=== PATIENT | male | born 1985 | race Caucasian/White ===

== ENCOUNTER 2017-01-04 12:23 | Emergency (ER) | payer MEDICAID | END 2017-01-04 12:45 | disposition left against medical advice (07) | LOC: D.ER 12:23 | DX: Z02.9 Encounter for administrative examinations, unspecified (principal) ==

== ENCOUNTER 2017-01-29 12:06 | Emergency (ER) | payer MEDICAID | END 2017-01-29 16:36 | disposition home or self-care (01) | LOC: D.ER 12:06 | DX: S49.91XA Unspecified injury of right shoulder and upper arm, initial encounter (principal); W11.XXXA Fall on and from ladder, initial encounter; Y93.89 Activity, other specified; Y92.029 Unspecified place in mobile home as the place of occurrence of the external cause; F17.200 Nicotine dependence, unspecified, uncomplicated ==

== ENCOUNTER 2017-02-18 13:09 | Emergency (ER) | payer MEDICAID ==
[2017-02-18 14:00] LABS: BASOPHILS 0.5 % (0-2); EOSINOPHILS 3.9 % (0-7); HEMATOCRIT 32.7 % (42.0-54.0); HEMOGLOBIN 10.1 g/dL (13.5-17.5); IMMATURE GRANULOCYTES 0.2 % (0-5); LYMPHOCYTES 26.9 % (15-50); MCH 23.4 pg (26.0-34.0); MCHC 30.9 g/dL (31.0-37.0); MCV 75.9 fL (80.0-100.0); MEAN PLATELET VOLUME 9.1 fL (7.4-10.4); MONOCYTES 4.6 % (2-11); NEUTROPHILS 63.9 % (40-80); PLATELET COUNT 344 10x3/uL (130-400); RBC 4.31 10x6/uL (4.20-6.10); RDW 15.9 % (11.5-14.5); WBC 8.7 10x3/uL (4.8-10.8)
[2017-02-18 14:01] LABS: APPEARANCE CLEAR (CLEAR); BILIRUBIN NEGATIVE (NEGATIVE); COLOR YELLOW (YELLOW); GLUCOSE NEGATIVE (NEGATIVE); KETONE SMALL mg/dL (NEGATIVE); NITRITE NEGATIVE (NEGATIVE); PROTEIN NEGATIVE (NEGATIVE); UROBILINOGEN NORMAL (NORMAL)
[2017-02-18 14:13] LABS: ALBUMIN 3.4 g/dL (3.4-5.0); ALKALINE PHOSPHATASE 70 U/L (46-116); ALT (SGPT) 48 U/L (10-68); BILIRUBIN - TOTAL 0.22 mg/dL (0.2-1.3); CALC OSMOLALITY 281 mosm/kg (275-300); CALCIUM 8.2 mg/dL (8.5-10.1); CHLORIDE - SERUM 108 mmol/L (98-107); CREATININE - SERUM 0.9 mg/dL (0.6-1.3); GLUCOSE 92 mg/dL (74-106); POTASSIUM - SERUM 3.9 mmol/L (3.5-5.1); PROTEIN - SERUM 6.7 g/dL (6.4-8.2); SODIUM 141 mmol/L (136-145); UREA NITROGEN 16 mg/dL (7-18); eGFR NON AFRICAN AMERICAN > 90 mL/min (90-120)
== END 2017-02-18 16:03 | disposition home or self-care (01) ==
LOC: D.ER 13:09
PROVIDERS: Family Medicine
DX: R10.32 Left lower quadrant pain (principal); R11.2 Nausea with vomiting, unspecified

== ENCOUNTER 2017-04-04 20:26 | Emergency (ER) | payer MEDICAID | END 2017-04-04 21:52 | disposition home or self-care (01) | LOC: D.ER 20:26 | DX: S61.213A Laceration without foreign body of left middle finger without damage to nail, initial encounter (principal); W25.XXXA Contact with sharp glass, initial encounter; Y93.89 Activity, other specified; Y92.019 Unspecified place in single-family (private) house as the place of occurrence of the external cause ==

== ENCOUNTER 2017-04-28 12:01 | Emergency (ER) | payer MEDICAID | END 2017-04-28 14:10 | disposition home or self-care (01) | LOC: D.ER 12:01 | DX: J11.1 Influenza due to unidentified influenza virus with other respiratory manifestations (principal); R51 Headache; R53.83 Other fatigue; R09.89 Other specified symptoms and signs involving the circulatory and respiratory systems ==

== ENCOUNTER 2017-09-24 18:28 | Emergency (ER) | payer MEDICAID ==
[~2017-09-24] VITALS: Ht 160 cm; Wt 78.6 kg
[2017-09-24 18:36] VITALS: Ht 160 cm; Wt 78.6 kg
[2017-09-24] MEDS ORDERED: ZOLOFT50 MG PO (18:40)
[2017-09-24] MEDS ORDERED: OMEPRAZOLE20 M1 PO (18:41)
[2017-09-24] MEDS ORDERED: TAMOXIFEN CITRA20 MG PO (18:41)
[2017-09-24] MEDS ORDERED: AMOXICILLIN500 M1 PO (20:25)
[2017-09-24 21:09] VITALS: BP 141/84
== END 2017-09-24 21:04 | disposition home or self-care (01) ==
LOC: D.ER 18:28
DX: R22.9 Localized swelling, mass and lump, unspecified (principal); F17.200 Nicotine dependence, unspecified, uncomplicated; R68.84 Jaw pain